=== PATIENT | male | born 1960 | race Caucasian/White ===

== ENCOUNTER 2020-12-24 22:17 | Emergency (ER) | payer MEDICARE, OTHER ==
[~2020-12-24 22:17] MED LIST: ALLEGRA-D 12 H1 EACH PO; ASPIRIN CHEWABL81 MG PO; BREO ELLIPTA 21 EACH INH; COREG25 MG PO; COZAAR50 MG PO; DESYREL 50 MG T50 MG PO; ENBREL50 MG/1 M1 SQ; FLONASE 0.05% N16 GM; FOLIC ACID1 MG PO; LIPITOR TAB 2020 MG PO; METHOTREXATE2.5 MG PO; NITROSTAT0.4 MG SL; NORCO 7.5-3251 EACH PO; PHENERGAN W/CO473 M1 PO; PLAVIX 75 MG TA75 MG PO; PREDNISONE10 MG PO; PROTONIX40 MG PO; VENTOLIN HFA 66.7 GM INH; VITAMIN D22000 UNIT PO; XOPENEX1.25 MG/3 INH; ZYRTEC10 M3 PO
[2020-12-24 23:08] LABS: HEMOGLOBIN 13.4 gm/dl (14.0-17.5); RED BLOOD COUNT 4.34 M/UL (4.20-5.50); WHITE BLOOD COUNT 7.7 K/UL (4.5-11.0)
[2020-12-24 23:33] LABS: BUN/CREATININE RATIO 24 (0-10)
[2020-12-25] MEDS ORDERED: BENTYL 20MG TAB20 MG PO (01:05)
[2020-12-25] MEDS ORDERED: LODINE CAP 300300 MG PO (01:05)
[2020-12-25] MEDS ORDERED: ZOFRAN ODT 4 MG4 MG PO (01:05)
== END 2020-12-25 01:20 | disposition home or self-care (01) ==
LOC: ER1 22:17
PROVIDERS: Physician Assistant
DX: R10.11 Right upper quadrant pain (principal); I25.10 Atherosclerotic heart disease of native coronary artery without angina pectoris; I25.2 Old myocardial infarction; E78.5 Hyperlipidemia, unspecified; I10 Essential (primary) hypertension; J44.9 Chronic obstructive pulmonary disease, unspecified; Z95.1 Presence of aortocoronary bypass graft; Z88.0 Allergy status to penicillin; Z88.8 Allergy status to other drugs, medicaments and biological substances
CPT/HCPCS: 71045; 80053; 81001; 82550; 82553; 83690; 83874; 84484; 85025; 87086; 93005; 96374; 96375; 99284; J1885; J2405; Q9967

== ENCOUNTER 2021-01-28 13:35 | Emergency (ER) | payer MEDICARE, OTHER ==
[~2021-01-28 13:35] MED LIST changes: +BENTYL 20MG TAB20 MG PO; +LODINE CAP 300300 MG PO; +ZOFRAN ODT 4 MG4 MG PO
[2021-01-28] MEDS ORDERED: PREDNISONE50 MG PO (17:53)
[2021-01-28] MEDS ORDERED: NORFLEX 100 MG100 MG PO (17:53)
[2021-01-28] MEDS ORDERED: Voltaren Gel 1 % TOP (17:53)
[2021-01-28] MEDS ORDERED: NAPROXEN500 MG PO (18:05)
== END 2021-01-28 18:10 | disposition home or self-care (01) ==
LOC: ER1 13:35
DX: M54.5 Low back pain (principal); J44.9 Chronic obstructive pulmonary disease, unspecified; Z88.0 Allergy status to penicillin
CPT/HCPCS: 72131; 96372; 99283; J1885; J2930